=== PATIENT | male | born 1995 | race Caucasian/White ===

== ENCOUNTER 2018-02-23 18:28 | Emergency (ER) | payer BC ==
[2018-02-23] MEDS: IBUPROFEN 600 MG TAB PO (18:55)
[2018-02-23] MEDS: DEXAMETHASONE 4 MG TAB PO (18:59)
== END 2018-02-23 19:26 | disposition home or self-care (01) ==
LOC: FTE 18:28
DX: J06.9 Acute upper respiratory infection, unspecified (principal)
CPT/HCPCS: 99283

== ENCOUNTER 2018-10-06 14:21 | Emergency (ER) | payer BC | END 2018-10-07 12:54 | disposition home or self-care (01) | LOC: E/R 10-07 12:54 | DX: R05 Cough (principal) | CPT/HCPCS: 99282 ==